=== PATIENT | female | born 1965 | race American Indian/Alaskan Native ===

== ENCOUNTER 2020-06-06 04:49 | Emergency (ER) | payer OTHER ==
[2020-06-06 06:30] VITALS: BP 144/78
--- NOTE | 2020-06-06 07:05 | XRay Report ---
CHEST 2 VIEWS INDICATION / CLINICAL INFORMATION: cough sob and Covid +. COMPARISON: None available. FINDINGS: SUPPORT DEVICES: None. HEART / MEDIASTINUM: No significant abnormality. LUNGS / PLEURA: Patchy pulmonary opacities in the right long. No pneumothorax. ADDITIONAL FINDINGS: No significant additional findings. IMPRESSION: 1. Patchy right lung pulmonary opacities which can be seen in atypical/viral pneumonia. Signer Name: Morro Gutierrez MD Signed: 06/06/2020 7:00 AM Workstation Name: [id number]
[2020-06-06 07:38] LABS: Basophils % (Auto) 0.5 % (0.0-1.8); Eosinophils % (Auto) 0.2 % (0.0-4.3); Hematocrit 46.9 % (30.3-42.9); Hemoglobin 15.7 gm/dl (10.1-14.3); Lymphocytes # (Auto) 1.2 K/mm3 (1.2-5.4); Lymphocytes % (Auto) 23.9 % (13.4-35.0); Mean Corpuscular HGB Conc 34 % (30-34); Mean Corpuscular Volume 80 fl (79-97); Monocytes # (Auto) 0.4 K/mm3 (0.0-0.8); Monocytes % (Auto) 8.3 % (0.0-7.3); Platelet Count 198 K/mm3 (140-440); Red Blood Count 5.87 M/mm3 (3.65-5.03); Red Cell Distribution Width 14.3 % (13.2-15.2)
[2020-06-06 07:54] LABS: Alanine Aminotransferase 47 units/L (7-56); Blood Urea Nitrogen 8 mg/dL (7-17); Calcium 8.9 mg/dL (8.4-10.2); Hemolysis Index 28
[2020-06-06 07:55] LABS: BUN/Creatinine Ratio 11
--- NOTE | 2020-06-06 08:16 | Emergency Department Report ---
ED General Adult HPI - General Chief complaint: Fever Stated complaint: COUGH, FEVER Time Seen by Provider: 06/06/20 08:10 Source: patient Mode of arrival: Ambulatory Limitations: No Limitations - History of Present Illness Initial comments: 55-year-old female patient presents with complaints of fever x 2 days. Patient began having a cough on 05/31/2020 and was diagnosed with COVID-19 on 06/03/2020. Patient states she has been following with her primary care doctor and was sent here today for chest x-ray to rule out pneumonia due to the development of a fever. She states the fever gets up to about 102 and does improve with Tylenol. She denies any chest pain, shortness of breath, nausea/vomiting/diarrhea, or abdominal pain. She has a history of diabetes and states her glucose is well controlled and is usually around 120. Severity scale (0 -10): 0 - Related Data Allergies Allergy/AdvReac Type Severity Reaction Status Date / Time No Known Allergies Allergy Unverified 06/06/20 06:20 ED Review of Systems ROS: Stated complaint: COUGH, FEVER Other details as noted in HPI Constitutional: malaise. denies: chills, diaphoresis, fever Respiratory: cough. denies: shortness of breath Cardiovascular: denies: chest pain, dyspnea on exertion, edema, syncope Endocrine: denies: excessive sweating Gastrointestinal: denies: abdominal pain, nausea, vomiting, diarrhea Musculoskeletal: denies: joint swelling Skin: denies: rash, lesions, change in color Neurological: denies: headache ED Past Medical Hx - Past Medical History Previous Medical History?: Yes Hx Diabetes: Yes - Surgical History Past Surgical History?: Yes Additional Surgical History: x 2 - Social History Smoking Status: Never Smoker ED Physical Exam - General Limitations: No Limitations General appearance: alert, in no apparent distress, obese - Head Head exam: Present: atraumatic, normocephalic - Eye Eye exam: Present: normal appearance. Absent: scleral icterus - Neck Neck exam: Present: normal inspection - Respiratory Respiratory exam: Present: normal lung sounds bilaterally. Absent: respiratory distress, accessory muscle use, decreased breath sounds - Cardiovascular Cardiovascular Exam: Present: regular rate, normal rhythm. Absent: systolic murmur, diastolic murmur, rubs, gallop - GI/Abdominal GI/Abdominal exam: Present: soft - Neurological Exam Neurological exam: Present: alert, oriented X3, normal gait - Psychiatric Psychiatric exam: Present: normal affect, normal mood - Skin Skin exam: Present: warm, dry, intact, normal color. Absent: rash, cyanosis, diaphoretic ED Course Vital Signs 06/06/20 06/06/20 06:28 08:49 Temperature 99.1 F Pulse Rate 105 H 98 H Respiratory 20 16 Rate Blood Pressure 144/78 [Left] O2 Sat by Pulse 95 96 Oximetry ED Medical Decision Making - Lab Data Result diagrams: 06/06/20 06:42 06/06/20 06:42 Lab Results 06/06/20 06/06/20 Range/Units 06:42 06:42 WBC 5.1 (4.5-11.0) K/mm3 RBC 5.87 H (3.65-5.03) M/mm3 Hgb 15.7 H (10.1-14.3) gm/dl Hct 46.9 H (30.3-42.9) % MCV 80 (79-97) fl MCH 27 L (28-32) pg MCHC 34 (30-34) % RDW 14.3 (13.2-15.2) % Plt Count 198 (140-440) K/mm3 Lymph % (Auto) 23.9 (13.4-35.0) % [place] % (Auto) 8.3 H (0.0-7.3) % Eos % (Auto) 0.2 (0.0-4.3) % Baso % (Auto) 0.5 (0.0-1.8) % Lymph # (Auto) 1.2 (1.2-5.4) K/mm3 [place] # (Auto) 0.4 (0.0-0.8) K/mm3 Eos # (Auto) 0.0 (0.0-0.4) K/mm3 Baso # (Auto) 0.0 (0.0-0.1) K/mm3 Seg Neutrophils % 67.1 (40.0-70.0) % Seg Neutrophils # 3.4 (1.8-7.7) K/mm3 Sodium 137 (137-145) mmol/L Potassium 4.4 (3.6-5.0) mmol/L Chloride 99.5 (98-107) mmol/L Carbon Dioxide 25 (22-30) mmol/L Anion Gap 17 mmol/L BUN 8 (7-17) mg/dL Creatinine 0.7 (0.6-1.2) mg/dL Estimated GFR > 60 ml/min BUN/Creatinine Ratio 11 % Glucose 132 H (65-100) mg/dL Calcium 8.9 (8.4-10.2) mg/dL Total Bilirubin 0.40 (0.1-1.2) mg/dL AST 33 (5-40) units/L ALT 47 (7-56) units/L Alkaline Phosphatase 105 (35-129) units/L Total Protein 7.8 (6.3-8.2) g/dL Albumin 4.0 (3.9-5) g/dL Albumin/Globulin Ratio 1.1 % - Medical Decision Making 55-year-old female patient presents with complaints of fever x 2 days. Patient began having a cough on 05/31/2020 and was diagnosed with COVID-19 on 06/03/2020. Patient states she has been following with her primary care doctor and was sent here today for chest x-ray to rule out pneumonia due to the development of a fever. She states the fever gets up to about 102 and does improve with Tylenol. She denies any chest pain, shortness of breath, nausea/vomiting/diarrhea, or abdominal pain. She has a history of diabetes and states her glucose is well controlled and is usually around 120. Patient denies any other complaints. Lungs are clear to auscultation bilaterally on exam with good air movement. She is well-appearing. Chest x-ray is normal. White count is normal CBC. Initial heart rate mildly elevated at 105, now 98 on repeat. Pulse ox is 98% on room air. Anion gap is noted to be 17. Patient states she has not been drinking water due to feeling fatigued. Recommend high water intake, vitamin C and zinc, and plenty of rest. Signs and symptoms that should prompt immediate return to the emergency department were discussed in detail with patient who verbalizes understanding. She is stable for discharge home and continue to follow up with her PCP. Critical care attestation.: If time is entered above; I have spent that time in minutes in the direct care of this critically ill patient, excluding procedure time. ED Disposition Clinical Impression: Fever due to COVID-19 Disposition: DC-01 TO HOME OR SELFCARE Is pt being admited?: No Condition: Stable Instructions: COVID-19 Additional Instructions: Please alternate acetaminophen and ibuprofen as needed for your fever. If you develop any new or worsening symptoms (especially difficulty breathing or chest pain), seek immediate emergency treatment Referrals: Steph FABIAN MD [Primary Care Provider] - 2-3 Days
[2020-06-06] MEDS ORDERED: SODIUM CHLORIDE 0.9% 1000 ML 1,000 ML IV ONE (08:43)
== END 2020-06-06 09:18 | disposition home or self-care (01) ==
LOC: ED 04:49
DX: U07.1 COVID-19 (principal); E11.9 Type 2 diabetes mellitus without complications
CPT/HCPCS: 36415; 71046; 80053; 85025; 99283